=== PATIENT | female | born 1960 | race Native Hawaiian/Other Pacific Islander ===

== ENCOUNTER 2016-08-07 14:47 | Outpatient (CLI) | payer BC, OTHER | END 2016-08-07 19:18 | disposition home or self-care (01) | LOC: RAD 14:47 | DX: M79.671 Pain in right foot (principal) ==

== ENCOUNTER 2017-04-27 14:58 | Outpatient (CLI) | payer BC, OTHER | END 2017-04-27 16:00 | disposition home or self-care (01) | LOC: LAB 14:58 | DX: N39.498 Other specified urinary incontinence (principal); N39.0 Urinary tract infection, site not specified | CPT/HCPCS: 81000; 87077; 87086; 87088; 87186 ==

== ENCOUNTER 2017-05-13 10:06 | Outpatient (CLI) | payer BC, OTHER | END 2017-05-13 22:48 | disposition home or self-care (01) | LOC: LAB 10:06 | DX: N39.0 Urinary tract infection, site not specified (principal) | CPT/HCPCS: 81000; 87077; 87086; 87088; 87186 ==

== ENCOUNTER 2018-02-24 15:05 | Outpatient (CLI) | payer BC, OTHER | END 2018-02-24 19:37 | disposition home or self-care (01) | LOC: LABW 15:05 | DX: N39.0 Urinary tract infection, site not specified (principal); N32.89 Other specified disorders of bladder | CPT/HCPCS: 81000; 87077; 87086; 87088; 87186 ==

== ENCOUNTER 2018-08-21 11:35 | Outpatient (CLI) | payer BC, OTHER | END 2018-08-21 11:39 | disposition short-term general hospital (02) | LOC: AMB 11:35 | DX: R10.9 Unspecified abdominal pain (principal) | CPT/HCPCS: A0425; A0427 ==

== ENCOUNTER 2019-08-01 11:11 | Outpatient (CLI) | payer BC, OTHER | END 2019-08-01 19:08 | disposition home or self-care (01) | LOC: LAB 11:11 | DX: N39.0 Urinary tract infection, site not specified (principal) | CPT/HCPCS: 81000; 87086; 87088 ==

== ENCOUNTER 2020-01-18 11:59 | Outpatient (CLI) | payer BC, OTHER | END 2020-01-18 19:51 | disposition home or self-care (01) | LOC: LAB 11:59 | DX: R82.90 Unspecified abnormal findings in urine (principal); L75.0 Bromhidrosis; R32 Unspecified urinary incontinence; R10.2 Pelvic and perineal pain | CPT/HCPCS: 81000; 87077; 87086; 87088; 87186 ==

== ENCOUNTER 2020-11-13 09:54 | Outpatient (CLI) | payer OTHER | END 2020-11-13 22:05 | disposition home or self-care (01) | LOC: LAB 09:54 | PROVIDERS: ATTEND Nurse Practitioner Family | DX: N39.0 Urinary tract infection, site not specified (principal); R82.998 Other abnormal findings in urine | CPT/HCPCS: 81000; 87086; 87088 ==

== ENCOUNTER 2020-11-21 13:34 | Outpatient (CLI) | payer OTHER | END 2020-11-21 21:09 | disposition home or self-care (01) | LOC: LAB 13:34 | PROVIDERS: ATTEND Nurse Practitioner Family | DX: N39.0 Urinary tract infection, site not specified (principal) | CPT/HCPCS: 81000 ==

== ENCOUNTER 2021-08-21 10:54 | Outpatient (CLI) | payer OTHER | END 2021-08-21 19:26 | disposition home or self-care (01) | LOC: LAB 10:54 | PROVIDERS: ATTEND Nurse Practitioner Family | DX: N39.0 Urinary tract infection, site not specified (principal) | CPT/HCPCS: 81000 ==

== ENCOUNTER 2022-06-25 10:46 | Outpatient (CLI) | payer OTHER | END 2022-06-25 19:16 | disposition home or self-care (01) | LOC: LAB 10:46 | PROVIDERS: ATTEND Nurse Practitioner Family | DX: R10.2 Pelvic and perineal pain (principal) | CPT/HCPCS: 81000; 87077; 87086; 87088; 87186 ==